=== PATIENT | male | born 1955 | race Caucasian/White ===

== ENCOUNTER 2018-11-20 20:31 | Emergency (ER) | payer OTHER ==
[~2018-11-20] VITALS: Ht 185.4 cm; Wt 117.9 kg
[~2018-11-20 20:31] MED LIST: AUGMENTIN 875 M1 TAB PO; Anusol Hc,Anuco25 MG R; CELEBREX200 MG PO; CIPRO500 MG PO; CLARITIN10 MG PO; COLACE100 MG PO; Duragesic 50 M50 MCG INTRADERM; Ecotrin325 MG PO; FISH OIL 10001000 MG PO; HYDR25T; LASIX10 MG/M1 PO; LISINOPRIL10 MG PO; LODINE200 MG PO; LOMOTIL 0.025 M1 TA1 PO; LOVENOX40 MG/0.4 SC; LYRICA300 MG PO; MOM30 M1 PO; OXY IR5 MG PO; OXYCODONE5 MG PO; PERCOCET 325 MG1 TA7 PO; PRILOSEC20 MG PO; TENORMIN25 MG PO; VIBRAMYCIN100 MG PO; ZESTRIL10 MG PO; ZOFRAN ODT4 MG SL
[2018-11-20 20:36] VITALS: BP 126/65
[2018-11-20] MEDS ORDERED: KENALOG 0.025%15 GM T (20:50)
[2018-11-20] MEDS ORDERED: ATARAX,VISTARIL10 MG PO (20:50)
== END 2018-11-20 21:05 | disposition home or self-care (01) ==
LOC: ED 20:31
DX: S50.862A Insect bite (nonvenomous) of left forearm, initial encounter (principal); S60.862A Insect bite (nonvenomous) of left wrist, initial encounter; S40.862A Insect bite (nonvenomous) of left upper arm, initial encounter; Z79.899 Other long term (current) drug therapy; Z88.2 Allergy status to sulfonamides; Z88.8 Allergy status to other drugs, medicaments and biological substances; W57.XXXA Bitten or stung by nonvenomous insect and other nonvenomous arthropods, initial encounter; Y93.89 Activity, other specified; Y92.89 Other specified places as the place of occurrence of the external cause; Y99.8 Other external cause status

== ENCOUNTER → 2019-05-23 | Outpatient (CLI) | payer OTHER ==
[~2019-05-23] MED LIST changes: +ATARAX,VISTARIL10 MG PO; +KENALOG 0.025%15 GM T
[2019-05-23 11:34] LABS: CREATININE 1.18 mg/dL (0.70-1.30)
== END | disposition home or self-care (01) ==
LOC: MRI 11:00 → LAB 11:06
PROVIDERS: Radiology Diagnostic Radiology
DX: M79.652 Pain in left thigh (principal); M62.50 Muscle wasting and atrophy, not elsewhere classified, unspecified site

== ENCOUNTER → 2021-03-12 | Outpatient (CLI) | payer OTHER | END | disposition home or self-care (01) | LOC: US 03-05 10:00 | PROVIDERS: ATTEND Nurse Practitioner Family | DX: R59.0 Localized enlarged lymph nodes (principal) ==

== ENCOUNTER → 2021-10-04 | Outpatient (CLI) | payer OTHER | END | disposition home or self-care (01) | LOC: US 00:12 | PROVIDERS: ATTEND Internal Medicine | DX: C43.59 Malignant melanoma of other part of trunk (principal); R59.0 Localized enlarged lymph nodes ==

== ENCOUNTER 2024-05-29 14:26 | Emergency (ER) | payer OTHER ==
[~2024-05-29] VITALS: Wt 115.7 kg
[~2024-05-29 14:26] MED LIST changes: +ASPIRIN ADULT L81 M2 PO; +AZELASTINE137 MCG/0. NAS; +BRILINTA90 M1 PO; +CYMBALTA30 MG PO; +MAGNESIUM500 MG PO; +OZEMPIC0.25 MG/01 SQ; +PRALUENT P150 MG/1 M SQ; +RANOLAZINE ER1000 MG PO; +TADALAFIL20 M1 PO; +ZYRTEC10 M2 PO
[2024-05-29 14:32] VITALS: BP 141/78
[2024-05-29] MEDS ORDERED: methylPREDNISolone sod succ 125 MG VIAL IM ONE (14:45)
[2024-05-29] MEDS ORDERED: Acetaminophen/Oxycodone 5 MG/325 MG TABLET PO ONE (14:45)
[2024-05-29] MEDS ORDERED: CYCLOBENZAPRINE5 M3 PO (16:28)
[2024-05-29] MEDS ORDERED: PREDNISONE50 MG PO (16:28)
== END 2024-05-29 16:54 | disposition home or self-care (01) ==
LOC: ED 14:26
DX: M54.41 Lumbago with sciatica, right side (principal); I25.10 Atherosclerotic heart disease of native coronary artery without angina pectoris; E11.9 Type 2 diabetes mellitus without complications; I10 Essential (primary) hypertension; E78.5 Hyperlipidemia, unspecified; K21.9 Gastro-esophageal reflux disease without esophagitis; Z88.2 Allergy status to sulfonamides; Z88.8 Allergy status to other drugs, medicaments and biological substances; Z88.6 Allergy status to analgesic agent; Z79.899 Other long term (current) drug therapy; Z79.82 Long term (current) use of aspirin; Z90.49 Acquired absence of other specified parts of digestive tract; Z96.653 Presence of artificial knee joint, bilateral